=== PATIENT | female | born 1970 | race Caucasian/White ===

== ENCOUNTER → 2024-10-31 | Day surgery (SDC) | payer BC ==
[~2024-10-31] MED LIST: ALPRAZolam 0.25 MG TAB PO PRN; ALPRAZolam 0.5 MG TAB PO PRN; ASPIRIN 325 MG TAB PO ONE; HEPARIN SODIUM,PORCINE (1 ML) 2,500 UNIT in SODIUM CHLORIDE 0.9% 250 ML IRRIGATION PRN; HEPARIN SODIUM,PORCINE 10,000 UNIT in SODIUM CHLORIDE 0.9% 1,000 ML IRRIGATION PRN; NITROGLYCERIN SL TABS 0.4 MG TAB SUBLINGUAL PRN; RX INFO: IV CONTRAST WAS GIVEN 1 EACH MISC MISCELLANE PRN; SODIUM CHLORIDE 0.9% 1,000 ML IV SCH; SODIUM CHLORIDE 0.9% 1,000 ML in EMPTY BAG 1 BAG IV SCH
[2024-10-31] MEDS: IV FLUID CONTINUATION 1,000 ML IV ONE (12:19)
[2024-10-31 12:23] VITALS: RESP 16; TEMP 98.5
[2024-10-31 12:32] LABS: Basophils % (A) 0 %; Eosinophils # (A) 0.1 k/uL (0-0.7); Eosinophils % (A) 1 %; HCT 42.4 % (34.0-46.0); HGB 13.9 gm/dL (11.4-16.0); Lymphocytes # (A) 1.5 k/uL (1.0-4.8); Lymphocytes % (A) 20 %; MCH 29.9 pg (25.0-35.0); MCHC 32.9 g/dL (31.0-37.0); Mean Platelet Volume 7.8; Monocytes # (A) 0.3 k/uL (0-1.0); Monocytes % (A) 5 %; Neutrophils # (A) 5.1 k/uL (1.3-7.7); Neutrophils % (A) 72 %; Platelet Count 243 k/uL (150-450); RBC 4.65 m/uL (3.80-5.40); RDW 13.6 % (11.5-15.5); WBC 7.1 k/uL (3.8-10.6)
[2024-10-31 13:01] LABS: African American GFR (CKD) 88 (>60 ml/min/1.73 sqM); Anion Gap 9 mmol/L; Blood Urea Nitrogen 21 mg/dL (7-17); Calcium 9.7 mg/dL (8.4-10.2); Carbon Dioxide 27 mmol/L (22-30); Chloride 104 mmol/L (98-107); Glucose 99 mg/dL (74-99); Non-African American GFR(CKD) 76 (>60 ml/min/1.73 sqM); Potassium 3.9 mmol/L (3.5-5.1); Sodium 140 mmol/L (137-145)
[2024-10-31] MEDS: fentaNYL (PF) 50 MCG/ML 2 ML AMP IVP ONE (13:08)
[2024-10-31] MEDS: MIDAZOLAM 2 MG/2 ML VIAL IVP ONE ×2 (13:08→13:10)
[2024-10-31] MEDS: LIDOCAINE 1% INJ 10MG/ML (20 ML MDV) SQ ONE ×2 (13:10→13:29)
[2024-10-31] MEDS: VERAPAMIL SYRINGE (5 MG/10 ML) INTRAARTER ONE (13:13)
[2024-10-31] MEDS: NITROGLYCERIN 1000MCG/10ML SYRINGE INTRACORON ONE (13:38)
[2024-10-31] MEDS: HEPARIN SODIUM,PORCINE (1 ML) 2,500 UNIT in SODIUM CHLORIDE 0.9% 250 ML IRRIGATION ONE (13:46)
[2024-10-31] MEDS: HEPARIN SODIUM,PORCINE 10,000 UNIT in SODIUM CHLORIDE 0.9% 1,000 ML IRRIGATION ONE (13:46)
--- NOTE | 2024-10-31 14:26 | P.CARDCATH ---
Date of Procedure: 10/31/24 Description of Procedure: DIAGNOSTIC CORONARY ANGIOGRAPHY and LEFT HEART CATH REPORT PROCEDURES PERFORMED: Left heart catheterization Selective coronary angiography Intracoronary nitroglycerin administration Moderate conscious sedation 41 mins [Ultrasound assisted] Right radial access Right radial artery angiogram Left femoral artery access, ultrasound-guided Left femoral angiogram 6 [place] Angio-Seal closure INDICATION: Abnormal stress test BRIEF HPI: 53-year-old female presented to cardiology office because of symptoms of palpitation, increased fatigue and exertional chest heaviness. For this we performed a Lexiscan nuclear stress test which showed anteroapical wall reversible perfusion defect. For this she was scheduled for heart catheterization procedure. CONSENT: I have explained the procedural steps of above-mentioned procedures in layman's terms to the patient. I discussed the risks (including but not limited to stroke, emergent vascular or cardiac surgery or ), benefits and alternative therapies for the above-mentioned procedure. I discussed the risks of sedation/analgesia and blood product administration (if indicated). The patient has indicated understanding and acceptance of these risks. Conscious Sedation: Patient's ECG, heart rate, blood pressure, pulse oximetry were monitored throughout the duration of procedure under my direct supervision. [2] mg Versed and [50] mcg Fentanyl were used for induction of moderate conscious sedation. Total duration of moderate concious sedation 41 minutes. PROCEDURAL DETAILS: Patient was prepped and draped in sterile fashion. 1% lidocaine was infiltrated over the right radial artery. Right radial access was obtained via modified seldinger technique. [Ultrasound was used for radial access]. The J-wire could not be advanced beyond the elbow joint. For this the J-wire was removed and with the JR4 diagnostic catheter the right radial artery angiogram was performed. It appears that it branches from the brachial artery at acute angle. Due to this we terminated the right radial approach I decided to proceed with a femoral approach. On ultrasound examination the right femoral artery bifurcation was high. Therefore we decided to proceed with a left femoral examination with ultrasound. On ultrasound left femoral artery appeared more favorable. Left femoral access was obtained under ultrasound guidance using modified single technique. Medications: 5mg of verapamil was administed in the radial sheet. Wires and Catheter used: J wire was advanced under fluroscopy to get to aortic root, JL 3.5 to selectively engage the left coronary ostium. Intracoronary nitroglycerin was administered in the left coronary circulation. JR4 to selectively engage the right coronary ostium. JR 4 catheter was used to obtain left ventricular pressure and pressure gradint across aortic valve. Angiographic images were reviewed in detail. Catheter and wire were removed. Radial sheet was flushed. The right radial sheath was removed and a TR band was placed. Patent hemostasis was achieved. The patient tolerated the procedure well. Patient was transported back to the post catheterization holding area in stable condition. 6 [place] Angio-Seal closure was utilized to obtain patent hemostasis in the left femoral artery. TECHNICAL DETAILS Total radiation: 320 mGy Total fluro time: 3.2 mins Total contrast used: Isovue [60 ml] Complications: [none] Estimated Blood loss: less than 15 ml HEMODYNAMICS: Aortic Pressure: 140/82 mmHg. LV pressure: 142/2 mmHg. LVEDP 9 mmHg. There was no significant gradient across the aortic valve. SELECTIVE CORONARY ARTERIOGRAPHY: LEFT MAIN: Left main does not axis. LAD and LCx arises from separate ostium. LEFT ANTERIOR DESCENDING CORONARY ARTERY: LAD is a large caliber vessel which wraps around to the apex. Proximal LAD is large caliber. As LAD progresses from proximal to mid segment, it progressively gets smaller in size from 4 mm lumen to 2 mm. There appears to be a small segment of myocardial bridging in mid segment. Distal LAD appears patent. Coronary flow appears to be sluggish. LAD gives rise to small diagonal branch which appears patent. After administration of intracoronary nitroglycerin, the lumen of mid segment of LAD appears modestly enlarged with better distal flow. LEFT CIRCUMFLEX CORONARY ARTERY: It is Dominant vessel. LCx is very large caliber vessel and appears patent. It gives rise to large OM branches which appears angiographically. Distal LAD gives rise to PDA and PL branch which appears angiographically patent. RIGHT CORONARY ARTERY: RCA is nondominant. It is a small caliber vessel. Right it gives rise to small RV marginal branches which appears patent. 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 IV fluids 125 cc/h for 4 hours. Monitor for 4 to 5 hours. Discharge home. Thereafter follow-up with Dr. Guerrero. Detailed instructions given how to take care of groin and right radial access site. Contact cardiology office or go to the ER if signs of swelling or hematoma. Discontinue losartan-hydrochlorothiazide. Decrease dose of losartan to 25 mg daily. Increase Imdur to 30 mg, start Cardizem CD 120 mg daily. Aspirin and Lipitor. Performing Physician Bennie Guerrero MD, FACC, RPVI Thank you for allowing [facility] to participate in this patient's care. Feel free to reach out in case of any followup questions.
[2024-10-31] MEDS: ACETAMINOPHEN TAB 500 MG TAB PO STA (17:05)
[2024-10-31 18:33] VITALS: BP 128/68; PULSE 55
== END ==
LOC: CATHCVL 11:38
PROVIDERS: ATTEND Student in an Organized Health Care Education/Training Program
DX: R94.39 Abnormal result of other cardiovascular function study (principal); J44.9 Chronic obstructive pulmonary disease, unspecified; I10 Essential (primary) hypertension; F17.210 Nicotine dependence, cigarettes, uncomplicated; F12.20 Cannabis dependence, uncomplicated; Q24.5 Malformation of coronary vessels; Z82.49 Family history of ischemic heart disease and other diseases of the circulatory system; Z79.899 Other long term (current) drug therapy
CPT/HCPCS: 93458; 80048; 85025; 99152; 99153; C1760; C1769 ×2; C1894 ×2; J2250; J1644 ×2; J2003; J3010; J2305